=== PATIENT | female | born 1985 | race Caucasian/White ===

== ENCOUNTER → 2017-12-19 21:19 | Observation (INO) ==
[2017-12-19 19:22] LABS: Amphetamine Screen,Urine Negative ng/mL (Cutoff=1000); Barbiturate Screen,Urine Negative ng/mL (Cutoff=200); Benzodiazepines Screen,Urine Negative ng/mL (Cutoff=200); Cannabinoid Screen,Urine Negative ng/mL (Cutoff = 50); Cocaine Screen,Urine Negative ng/mL (Cutoff= 300); Opiate Screen,Urine Negative ng/mL (Cutoff=300); Phencyclidine Screen,Urine Negative ng/mL (Cutoff=25)
--- NOTE | 2017-12-24 17:44 | Event Note ---
Date of Encounter: 12/24/17 Time of Encounter: 20:00 Missy is a 32-year-old female 1 who presented today with contractions every 2-10 minutes. On presentation sterile vaginal exam was 1 cm thick and very high. Patient had reactive tracing category 1. Patient was monitored with external monitoring.. Nursing monitored patient closely. Over the course of the patient's visit, there was no cervical change. Patient wished to go home. Patient was given instructions for labor. Patient was discharged to home.
== END | disposition home or self-care (01) ==
LOC: 1NENULAB
PROVIDERS: ADMIT Obstetrics & Gynecology; ATTEND Obstetrics & Gynecology